=== PATIENT | male | born 1970 | race Two or more races ===

== ENCOUNTER 2025-10-18 11:31 | Emergency (ER) | payer MEDICAID, OTHER ==
[~2025-10-18] VITALS: Ht 172.7 cm; Wt 61.7 kg
[2025-10-18] MEDS ORDERED: ONDANSETRON HCL/PF 4 MG/2 ML VIAL ONE (11:54)
[2025-10-18] MEDS ORDERED: LORAZEPAM INJ 2 MG/ML VIAL ONE (11:56)
[2025-10-18] MEDS: ONDANSETRON HCL/PF 4 MG/2 ML VIAL IV ONE (12:08)
[2025-10-18] MEDS: IV NS 0.9% 1,000 ML BAG IV ONE (12:08)
[2025-10-18] MEDS: LORAZEPAM INJ 2 MG/ML VIAL IV ONE (12:08)
[2025-10-18 12:21] LABS: PLATELET COUNT (AUTO) 151 K/uL (150-450); RED BLOOD CELL COUNT(AUTO) 4.16 MIL/uL (4.5-6.0); RED CELL DISTRIBUTION WIDTH 15.3 % (11.5-15.0); WHITE BLOOD COUNT (AUTO) 3.0 K/uL (4.3-11.0)
[2025-10-18 12:22] LABS: CALCIUM, SERUM 8.1 mg/dL (8.5-10.1); CREATININE 0.8 mg/dL (0.6-1.3); SODIUM SERUM 149 mmol/L (136-145); UREA NITROGEN, BLOOD 9 mg/dL (7-18)
[2025-10-18 12:30] LABS: ALCOHOL, BLOOD 415 mg/dL (0-10); ASPARTATE AMINOTRANSFERASE 43 U/L (15-37); TOTAL PROTEIN, SERUM 8.1 g/dL (6.4-8.2)
[2025-10-18 12:51] LABS: APPEARANCE,URINE CLEAR (CLEAR); BLOOD, URINE NEGATIVE Ery/uL (NEGATIVE); LEUKOCYTE ESTERASE ,URINE NEGATIVE (NEGATIVE); NITRITE, URINE NEGATIVE (NEGATIVE); UGLUCOSE NEGATIVE (NEGATIVE)
[2025-10-18 13:00] LABS: AMPHETAMINE, URINE NEGATIVE (NEGATIVE); BARBITURATE, URINE NEGATIVE (NEGATIVE); CANNABINOID, URINE NEGATIVE (NEGATIVE); COCCAINE, URINE NEGATIVE (NEGATIVE); OPIATE, URINE NEGATIVE (NEGATIVE)
[2025-10-18 13:11] LABS: BENZODIAZEPINE, URINE POSITIVE (NEGATIVE)
[2025-10-18] MEDS ORDERED: ONDA4TAB5 PO (14:42)
[2025-10-18] MEDS ORDERED: FAMO-131 PO (14:42)
[2025-10-18 14:47] VITALS: BP 128/76; TEMP 98; O2SAT 100
[2025-10-18] MEDS ORDERED: LIDOCAINE VISCOUS 2% UD 15 ML UDC MM ONE (15:00)
[2025-10-18] MEDS ORDERED: MAG HYDROX/AL HYDROX/SIMETH 30 ML UDC PO ONE (15:00)
[2025-10-18] MEDS ORDERED: FAMOTIDINE/PF INJ 20 MG/2 ML VIAL IV ONE (15:00)
== END 2025-10-18 14:48 | disposition home or self-care (01) ==
LOC: ER 11:38
DX: F10.229 Alcohol dependence with intoxication, unspecified (principal); K29.20 Alcoholic gastritis without bleeding; E86.0 Dehydration; D72.819 Decreased white blood cell count, unspecified; I11.9 Hypertensive heart disease without heart failure; Z95.5 Presence of coronary angioplasty implant and graft; Z79.899 Other long term (current) drug therapy; Y90.8 Blood alcohol level of 240 mg/100 ml or more
CPT/HCPCS: 99284; 96374; 96361; 96375; 85025; 80048; 80076; 81003; 36415; 80143; 80320; 80307; J2060; J2405; J7030; G0480